=== PATIENT | male | born 1935 | race Caucasian/White ===

== ENCOUNTER → 2016-04-05 | Outpatient (CLI) | payer OTHER ==
[~2016-04-05] MED LIST: ASPI81TA28 PO; BND25X PO; CMD1 PO; FLUT0.15; FRRG PO; MULT-190 PO; MULT-506 PO; MXZC25 PO; NAPR1TAB9 PO; PRLSR20 PO; PSYL48.59 PO; SIMV40TA2 PO; TOBRSUS OPB; TYLUNK PO; ZNTT/150 PO
== END | disposition home or self-care (01) ==
LOC: C.PATHSPEC 17:37
PROVIDERS: ATTEND Urology
DX: R97.20 Elevated prostate specific antigen [PSA] (principal)

== ENCOUNTER → 2016-09-15 | Outpatient (CLI) | payer OTHER ==
[~2016-09-15] MED LIST changes: -ASPI81TA28 PO; -CMD1 PO; -FRRG PO; -MULT-506 PO; -TYLUNK PO
[2016-09-15 10:48] LABS: BASO % 0.6 %; BASO ABS # 0.03 K/uL (0-0.2); COMPLETE YES; EOS % 4.6 %; HEMATOCRIT 45.5 % (42-52); IG% 0.4 %; LYMPH % 23.5 %; LYMPH ABS # 1.13 K/uL (1.2-3.4); MEAN CELL VOLUME 90.5 fL (80-100); MEAN CORPUSCULAR HEMOGLOBIN 29.2 pg (25-34); MEAN CORPUSCULAR HGB CONC 32.3 g/dl (32-36); MEAN PLATELET VOLUME 9.7 fL (7.4-10.4); MONO % 11.4 %; NEUT % 59.5 %; PLATELET COUNT 217 K/uL (130-400); RED BLOOD COUNT 5.03 M/uL (4.7-6.1); WHITE BLOOD COUNT 4.81 K/uL (4.8-10.8)
[2016-09-15 11:13] LABS: ALT/SGPT 28 U/L (12-78); AST/SGOT 21 U/L (15-37); BLOOD UREA NITROGEN 17 mg/dl (7-18); BUN/CREATININE RATIO 15.8 (10-20); CARBON DIOXIDE 30 mmol/L (21-32); CHLORIDE 100 mmol/L (98-107); CHOLESTEROL 129 mg/dl (0-200); CHOLESTEROL/HDL RATIO 2.6; GLUCOSE 100 mg/dl (70-99); HDL CHOLESTEROL 49 mg/dl; LDL CHOLESTEROL CALCULATED 68 mg/dl; SODIUM 138 mmol/L (136-145); TRIGLYCERIDES 62 mg/dl (0-150); VERY LOW DENSITY LIPOPROT CALC 12 mg/dl
[2016-09-15 11:22] LABS: ALKALINE PHOSPHATASE 57 U/L (45-117)
== END | disposition home or self-care (01) ==
LOC: C.LABBC 07:07
PROVIDERS: ATTEND Internal Medicine
DX: M54.5 Low back pain (principal)

== ENCOUNTER → 2016-10-16 | Outpatient (CLI) | payer OTHER ==
[2016-10-16 11:47] LABS: BLOOD UREA NITROGEN 19 mg/dl (7-18)
== END | disposition home or self-care (01) ==
LOC: C.LABBC 07:20
PROVIDERS: ATTEND Urology
DX: C61 Malignant neoplasm of prostate (principal)

== ENCOUNTER → 2017-01-04 | Outpatient (CLI) | payer OTHER ==
[2017-01-04 11:17] LABS: BLOOD UREA NITROGEN 16 mg/dl (7-18); BUN/CREATININE RATIO 15.9 (10-20)
[2017-01-04 11:22] LABS: % FREE PSA 11.8 %; FREE PSA 0.77 ng/ml
== END | disposition home or self-care (01) ==
LOC: C.LABBC 07:28
PROVIDERS: ATTEND Urology
DX: C61 Malignant neoplasm of prostate (principal)

== ENCOUNTER → 2017-01-11 | Outpatient (CLI) | payer OTHER ==
[~2017-01-11] MED LIST changes: +GADAVIST IV PRN
--- NOTE | 2017-01-11 10:35 | DIAGNOSTIC IMAGING REPORT ---
PROSTATE MRI COMBO CLINICAL HISTORY: 81 years-old Male presenting with prostate carcinoma. PSA 7 ng/mL. TECHNIQUE: Multisequence, multiplanar MR imaging of the prostate was performed before and after the administration of intravenous contrast. Additional postprocessing was performed on a separate [employer] workstation by the radiologist for 3-D volumetric segmentation of the prostate and contouring of region(s) of interest (MATEO) for targeting. IV contrast: 6.5 cc intravenous Gadavist COMPARISON: None. FINDINGS: Prostate: The prostate measures 4.9 x 3.9 x 4.2 cm cm (DynaCAD prostate boundary segmentation volume 35 mL). Mild changes of benign prostatic hyperplasia. Precontrast T1 weighted imaging demonstrates no evidence of intrinsic T1 hyperintensity to suggest hemorrhage. Seminal vesicles normal. Suspicious lesion(s) described below: Lesion (DynaCAD MATEO) 1: Location: Left anterior transition zone at the mid gland. The lesion does not extend across the midline. Size: 13 mm (as measured on ADC for PZ lesion and T2WI for TZ lesion) T2W: 4. No evidence of extraprostatic extension. DWI: 4. Focal markedly hypointense on ADC and markedly hyperintense on high b-value DWI. DCE: Positive. Focal enhancement corresponding to a suspicious finding, earlier or contemporaneous with adjacent normal tissue. PI-RADS: 4. Clinically significant cancer is likely to be present. Bladder: Normal. Bowel: Visualized portion of the rectum normal. Peritoneum: No free fluid in the pelvis. Lymph nodes: No lymphadenopathy in the visualized portion of the pelvis. Vasculature: Iliac vessels patent. Osseous structures: Normal bone marrow signal intensity. IMPRESSION: 1. 13 mm lesion in the left anterior transition zone at the mid gland. PI-RADS 4. Clinically significant cancer is likely to be present. This lesion has been segmented for targeted biopsy. 2. Benign prostatic hyperplasia. Electronically signed by: Ramsey Bill M.D. 01/11/2017 10:34 AM Dictated Date/Time: 01/11/2017 10:28 AM
== END | disposition home or self-care (01) ==
LOC: C.MRIBC 07:47
PROVIDERS: ATTEND Urology
DX: C61 Malignant neoplasm of prostate (principal); N40.0 Benign prostatic hyperplasia without lower urinary tract symptoms

== ENCOUNTER → 2017-01-23 | Outpatient (CLI) | payer OTHER ==
[~2017-01-23] MED LIST changes: -GADAVIST IV PRN
--- NOTE | 2017-01-23 14:30 | DIAGNOSTIC IMAGING REPORT ---
BONE SCAN WHOLE BODY HISTORY: 81 years-old Male C61 Prostate [id number] metastatic survey in a patient with prostate cancer. History of right total hip arthroplasty. Patient complains of back pain. COMPARISON: Bone scan 06/13/2010, pelvis radiograph 02/17/2011, CT 03/16/2006. TECHNIQUE: Anterior and posterior whole body bone scan scintigraphic planar images were obtained utilizing 26.5 mCi technetium 99 MDP. Scan was obtained 3 hours post injection. FINDINGS: Unchanged hydronephrosis of the left kidney. Physiologic radiotracer uptake is seen about the right kidney and urinary bladder. Mildly increased tracer uptake about the appendicular skeletal system suggest degenerative changes, notably within the knees, shoulders and feet. Photopenic defect within the right femoral head, neck and proximal shaft correlates with right hip arthroplasty. Mildly increased radiotracer uptake surrounding arthroplasty is likely secondary to remodeling changes or loosening. There is moderately increased radiotracer uptake involving the lower lumbar spine at L4-L5. Additionally, there is moderate indeterminate radiotracer uptake of the midline anterior upper chest within the region of the sternum, seen best on the frontal views. Focal area of mildly increased radiotracer uptake is seen within the region of the posterior aspect left 11th rib. IMPRESSION: 1. Indeterminate focal area of moderately increased radiotracer uptake of the midline anterior upper chest within the region of the sternum. Correlate with CT of the chest. 2. Focal moderate radiotracer uptake within the region of the inferior endplate L4. This is suspicious for possible compression deformity rather than metastasis. Correlate with lumbar spine radiographs. 3. Mildly increased radiotracer uptake of the left 11th rib suggests age-indeterminate rib fracture. This could also be correlated with radiographs. 4. Mild tracer uptake about the right hip arthroplasty likely reflects physiologic remodeling changes or loosening. 5. Unchanged left hydronephrosis. The above report was generated using voice recognition software. It may contain grammatical, syntax or spelling errors. Electronically signed by: Pérez Garcia M.D. 01/23/2017 2:29 PM Dictated Date/Time: 01/23/2017 1:39 PM
== END | disposition home or self-care (01) ==
LOC: C.NUCL 09:32
PROVIDERS: ATTEND Urology
DX: C61 Malignant neoplasm of prostate (principal)

== ENCOUNTER → 2017-04-04 | Outpatient (CLI) | payer OTHER ==
[~2017-04-04] MED LIST changes: +RANI150T85 PO; -ZNTT/150 PO
== END | disposition home or self-care (01) ==
LOC: C.PATHSPEC 18:10
PROVIDERS: ATTEND Urology
DX: C61 Malignant neoplasm of prostate (principal)

== ENCOUNTER → 2017-04-30 | Outpatient (CLI) | payer OTHER ==
[~2017-04-30] MED LIST changes: -RANI150T85 PO; +ZNTT/150 PO
--- NOTE | 2017-04-30 12:27 | DIAGNOSTIC IMAGING REPORT ---
CHEST 2 VIEWS ROUTINE CLINICAL HISTORY: 81 years-old Male presenting with COUGH. TECHNIQUE: PA and lateral views of the chest were obtained. COMPARISON: 02/07/2011. FINDINGS: Atherosclerosis of the aortic arch. Cardiac silhouette normal in size. Calcified granuloma noted at the left apex. Lungs and pleural spaces otherwise clear. Degenerative changes of the thoracic spine. Upper abdomen normal. IMPRESSION: 1. No acute cardiopulmonary disease. Electronically signed by: Jesus Johnson M.D. 04/30/2017 12:26 PM Dictated Date/Time: 04/30/2017 12:25 PM
== END | disposition home or self-care (01) ==
LOC: C.RADBC 12:08
PROVIDERS: ATTEND Physician Assistant Medical
DX: R05 Cough (principal)

== ENCOUNTER → 2017-05-01 | Outpatient (CLI) | payer OTHER ==
--- NOTE | 2017-05-01 16:46 | DIAGNOSTIC IMAGING REPORT ---
(CHEST) THORAX WITHOUT CLINICAL HISTORY: R94.8 Abnormal radionuclide bone scan PROSTATE CARCINOMA COMPARISON STUDY: Whole-body bone scan dated 01/23/2017, chest x-ray dated 04/30/2017 CT DOSE: 316.35 mGy.cm TECHNIQUE: CT of the thorax was performed from the thoracic inlet to the lung bases. Images are reviewed in the axial, sagittal, and coronal planes. IV contrast was not administered for this examination. A dose lowering technique was utilized adhering to the principles of ALARA. FINDINGS: Thyroid: Is a 23 mm left lobe thyroid nodule. Thoracic aorta: There is mild ectasia of the ascending thoracic aorta which measures 38 mm in diameter. Heart: There are mild coronary artery calcifications present. Lungs and pleural spaces: No pleural effusions are visualized. There is no focal pulmonary consolidation. There are bilateral pleural plaques, several which are calcified. This suggests a prior occupational exposure history. There are no suspicious pulmonary masses. There is a calcified left upper lobe granuloma. Mediastinum: There is no mediastinal lymphadenopathy. Karine: There is no evidence of pathologic hilar adenopathy given the limitations of a noncontrast study Axilla: There is no evidence of pathologic axillary lymphadenopathy Upper abdomen: There is a hiatal hernia. There are multiple large left renal cysts measuring up to 9.4 cm in diameter Skeletal structures: No lytic or blastic lesions are visualized. No sternal or manubrial lesions are evident. The upper thoracic activity described on the prior bone scan will nonspecific but potentially relates to prominent anterior vertebral body osteophytes IMPRESSION: 1. 23 mm left lobe thyroid nodule 2. Small calcified pleural plaques 3. No suspicious pulmonary masses 4. No evidence of pathologic adenopathy 5. No lytic or blastic skeletal lesions are visualized Electronically signed by: Ramsey Bill M.D. 05/01/2017 4:45 PM Dictated Date/Time: 05/01/2017 4:37 PM
== END | disposition home or self-care (01) ==
LOC: C.CTS 16:25
PROVIDERS: ATTEND Internal Medicine
DX: E04.1 Nontoxic single thyroid nodule (principal); R94.8 Abnormal results of function studies of other organs and systems

== ENCOUNTER → 2017-05-07 | Outpatient (CLI) | payer OTHER ==
--- NOTE | 2017-05-07 12:27 | DIAGNOSTIC IMAGING REPORT ---
ULTRASOUND OF THE THYROID GLAND CLINICAL HISTORY: Thyroid nodule. COMPARISON STUDY: Chest CT dated 05/01/2017. TECHNIQUE: Real-time, grayscale, and color flow sonography of the thyroid gland is performed utilizing a high-frequency linear transducer. Images are reviewed in the transverse and longitudinal planes. FINDINGS: Right lobe: The right lobe of the thyroid gland is normal in size and homogeneous in echotexture, measuring 5.1 x 1.9 x 1.8 cm. Left lobe: The left lobe of the thyroid gland is normal in size and homogeneous in echotexture, measuring 4.9 x 1.5 x 1.3 cm. Isthmus: The thyroid isthmus is normal in appearance and measures 0.1 cm in AP diameter. IMPRESSION: 1. The thyroid gland is normal in size and homogeneous in echotexture. 2. No thyroid nodule is identified. 3. The thyroid nodule questioned by CT on 05/01/2017 likely corresponded to focal dilatation of the adjacent internal jugular vein. This is of doubtful significance. Electronically signed by: Frantz Portillo M.D. 05/07/2017 12:26 PM Dictated Date/Time: 05/07/2017 12:25 PM
== END | disposition home or self-care (01) ==
LOC: C.ULTR 11:46
PROVIDERS: ATTEND Internal Medicine
DX: E04.1 Nontoxic single thyroid nodule (principal)

== ENCOUNTER → 2017-05-10 | Outpatient (CLI) | payer OTHER ==
[~2017-05-10] MED LIST changes: +RANI150T85 PO; -ZNTT/150 PO
[2017-05-10 09:42] VITALS: BP 162/85; PULSE 70; TEMP 36.9; O2SAT 98
--- NOTE | 2017-05-10 11:02 | Radiation Oncology Follow-Up ---
Radiation Oncology Follow-Up Date of Visit May 10, 2017. Reason For Visit 1 year follow-up has undergone active surveillance and rebiopsy Radiation Completion Date not applicable Diagnosis (1) Prostate cancer Status: Acute Onset Date: 04/05/2016 Stage: ll Permanent Comment: Rising PSA, pretreatment PSA 6.03 Status post ultrasound guided biopsies 04/05/2016 Ricky grade 3+3 Prostate volume 36.5 Prostate density 0.165 Active surveillance, last PSA 01/04/2017 at 6.550 Status post ultrasound-guided biopsies 04/04/2017 Ricky 3+3 and 3+4 Last Edited By: Lucinda Olivares on May 10, 2017 10:50 History of Present Illness Mr. Caldera is without a family history of prostate cancer. He has been followed with prostate-specific antigens. These remained under 07/03/2013. In August 2014 the prostate-specific antigen was 4.76. This was repeated on in September 2014 and was 4.3. In January 2015 prostate-specific antigen was 4.7. August 2015 prostate-specific antigen was 5.85 and on 02/04/2016 the prostate-specific antigen was 6.03. The patient's digital exam is remained unremarkable. His free prostate-specific antigen was 14.6%. Because of the change in prostate- specific antigen Dr. Bledsoe discussed the option of ultrasound-guided biopsies with the patient. He ultimately did agree and the biopsy was scheduled and performed on 04/05/2016. A total of 14 samples were taken. This included two biopsies each from the left and right base, left and right mid gland, left and right apex and one biopsy from the left and right anterior gland. The biopsies from the left base , left mid gland, right mid gland, left apex and right apex were all benign. 2 of 2 biopsies from the right base were positive for adenocarcinoma Ricky grade 3+3 involving less than 10% of the aggregate core length. No perineural or lymphovascular invasion was identified. One of 2 biopsy from the left apex was positive for prostatic adenocarcinoma Ricky grade 3+3 involving 50% of the core length with no perineural or lymphovascular invasion identified. One biopsy from the left anterior gland was positive for prostatic adenocarcinoma Ricky grade 3+3 involving 60% of the core length with no perineural or lymphovascular invasion identified. Case: 17-once 17-S. Therefore total of 4 out of 14 biopsies were positive all Wichita grade 3+3. 2 biopsies from the left gland in 2 biopsies from the right gland were positive. The patient met with Dr. Bledsoe to discuss treatment options. He arranged for us to see the patient in referral to also discuss treatment options. Interim History Patient had been seen on 04/27/2016. Options of treatment were reviewed. His decision was to be treated with active surveillance. He has been followed very closely by Dr. Bledsoe. He has had recheck PSAs. On 10/16/2016 the PSA was 7.030. Recheck PSA 01/04/2017 was 6.550. Recheck biopsy was recommended and carried out on 04/04/2017. Prior to the biopsy he had an MRI in order to have guidance to targeted lesions. MRI on 01/11/2017 showed 13 mm lesion in the left anterior transitional zone at the mid gland. The biopsies were performed and a total of 17 biopsies were taken. 6 of the biopsies were positive. At the right base one of 2 biopsies were positive with a Ricky 3+3 perineural invasion was negative. 12.5% of the core was involved. Biopsy at the right mid was positive with a 3+3. This was one core. 5% of the core was involved. There was perineural invasion present. A biopsy at the left apex showed 3+4. Perineural invasion was not seen. 15% of the core was a Ricky 4. The total amount of core was 50%. A biopsy at the left anterior showed a 3+3. 60% of the core was involved. Perineural invasion was not seen. The targeted lesion was biopsied and found to have a [place]ichita 3+3 in 2 of 3 cores. The percentage of the cores involved was 50% and 55%. Calculation was performed on the PSAs and there was a doubling time of 5.5 years. Allergies Coded Allergies: No Known Allergies (Verified , 06/16/09) Home Medications Scheduled Diphenhydramine Hcl (Benadryl *), 50 MG PO HS PRN Fluticasone Propionate (Nasal) (Flonase Allergy Relief), 2 SPRAYS NA DAILY Ocuvite Preservision (Ocuvite Preservision), 1 TAB PO DAILY Omeprazole (Prilosec), 20 MG PO QAM Psyllium (Metamucil), 1 TSP PO DAILY Ranitidine (Zantac), 150 MG PO HS Simvastatin (Zocor), 40 MG PO QPM Tobramycin/Dexamethasone 0.3% Oph (Tobradex 0.3% Oph), 1 DROP OPB DAILY Triamterene/Hctz (Triamterene/Hctz 37.5-25MG Tab), 1 TAB PO DAILY Scheduled PRN Naproxen (Aleve), 220 MG PO DAILY PRN for Pain Review of Systems Gastrointestinal: Symptoms: WNL Oral: Symptoms: No Problems Respiratory: Symptoms: Moist Cough Respiratory Comments: getting over a flu Sputum Character: clear, thick Urinary: Comments: occasionally hard to start Skin: Symptoms: No Problems Physical Exam Vital Signs Date Time Temp Pulse Resp B/P (MAP) Pulse Ox O2 Delivery O2 Flow Rate FiO2 05/10/17 09:42 36.9 70 18 162/85 98 Fatigue: None General Appearance: no apparent distress Eyes: normal inspection, EOMI ENT: normal ENT inspection, hearing grossly normal Respiratory/Chest: lungs clear, no respiratory distress, no accessory muscle use Cardiovascular: regular rate, rhythm, no gallop, no murmur Abdomen: non tender, soft, no organomegaly Extremities: no pedal edema Neurologic/Psychiatric: no motor/sensory deficits, alert, normal mood/affect Pain Management Patient Reports Pain: No Pain Location: None Patient Preferred Pain Scale: 0 - 10 Initial Pain Intensity: 0.0 Pain Management Plan He denies pain therefore requires no pain management. Laboratory Laboratory Results: were reviewed, and pertinent findings noted in HPI Laboratory Comments: Reviewed in the interim history. Pathology Pathology Results: were reviewed, and pertinent findings noted below Pathology Comments [facility] SURGICAL PATHOLOGY REPORT Name HILARIO CALDERA Case: SURGICAL PATHOLOGY REPORT Page [address] [address] Jesus Valentin M.D. camera repairman PATHOLOGY REPORT SURGICAL PATHOLOGY REPORT Page 1 of 1 Name HILARIO CALDERA Age/Sex 81/M Location: [facility]# [id number] : 1935 /Bed Physician: Abdiel Bledsoe MD, Urology Case: -S Received 04/04/17 Specimen Date 04/04/17 CLINICAL HISTORY R97.20 GROSS DESCRIPTION A. LEFT BASE X2 The specimen is received in a container labeled as left base with patient name Hilario Caldera. The specimen consists of two cylindrical fragments of pink soft tissue, each measuring 2 cm in length and averaging 0.1 cm in diameter. The specimen is entirely submitted in a single cassette as A for levels. B. RIGHT BASE X2 The specimen is received in a container labeled as right base with patient name Hilario Caldera. The specimen consists of three cylindrical fragments of pink soft tissue which range from 0.2 to 1.6 cm in length and average 0.1 cm in diameter. The specimen is entirely submitted in a single cassette as B for levels. C. LEFT MID X2 The specimen is received in a container labeled as left mid with patient name Hilario Caldera. The specimen consists of five cylindrical fragments of pink soft tissue which range from 0.2 to 1.5 cm in length and average 0.1 cm in diameter. The specimen is entirely submitted in a single cassette as C for levels. D. RIGHT MID X2 The specimen is received in a container labeled as right mid with patient name Hilario Caldera. The specimen consists of two cylindrical fragments of pink soft tissue which measure 1.5 and 1.7 cm in length and average 0.1 cm in diameter. The specimen is entirely submitted in a single cassette as D for levels. E. LEFT APEX X2 The specimen is received in a container labeled as left apex with patient name Hilario Caldera. The specimen consists of three cylindrical fragments of pink soft tissue which range from 0.2 to 1.8 cm in length and average 0.1 cm in diameter. The specimen is entirely submitted in a single cassette as E for levels. F. RIGHT APEX X2 The specimen is received in a container labeled as right apex with patient name Hilario Caldera. The specimen consists of three cylindrical fragments of pink soft tissue which range from 0.3 to 2 cm in length and average 0.1 cm in diameter. The specimen is entirely submitted in a single cassette as F for levels. G. LEFT ANTERIOR X1 The specimen is received in a container labeled as left anterior with patient name Hilarioliane Caldera. The specimen consists of a single cylindrical fragment of pink soft tissue which measures 1.8 cm in length and averages 0.1 cm in diameter. The specimen is entirely submitted in a single cassette as G for levels. H. RIGHT ANTERIOR X1 The specimen is received in a container labeled as right anterior with patient name Hilario Caldera. The specimen consists of a single cylindrical fragment of pink soft tissue which measures 1.7 cm in length and averages 0.1 cm in diameter. The specimen is entirely submitted in a single cassette as H for levels. I. LESION 1 X3 The specimen is received in a container labeled as lesion #1 with patient name Hilario Caldera. The specimen consists of three cylindrical fragments of pink soft tissue, each measuring 1.3 cm left and averaging 0.1 cm in diameter. The specimen is entirely submitted in a single cassette as I for levels. SH/mas FINAL DIAGNOSIS A. PROSTATE, LEFT BASE, BIOPSIES: BENIGN PROSTATIC TISSUE WITH MILD CHRONIC INFLAMMATION. NO NEOPLASM SEEN. B. PROSTATE, RIGHT BASE, BIOPSIES: 1. ADENOCARCINOMA, RICKY SCORE 3+3=6 (PROGNOSTIC GROUP 1) INVOLVING ONE OF TWO CORES. 2. TUMOR INVOLVES 0.15 CM/12.5% OF A 1.2 CM CORE. 3. PERINEURAL INVASION NOT SEEN. C. PROSTATE, LEFT MID, BIOPSIES: BENIGN PROSTATIC TISSUE. NO NEOPLASM SEEN. D. PROSTATE, RIGHT MID, BIOPSIES: 1. ADENOCARCINOMA, RICKY SCORE 3+3=6 (PROGNOSTIC GROUP 1) INVOLVING ONE OF TWO CORES. 2. TUMOR INVOLVES 0.1 CM/5% OF A 1.7 CM CORE. 3. PERINEURAL INVASION PRESENT. E. PROSTATE, LEFT APEX, BIOPSIES: 1. ADENOCARCINOMA, RICKY SCORE 3+4=7 (PROGNOSTIC GROUP 2) INVOLVING ONE OF TWO CORES. 2. TUMOR INVOLVES 0.6 CM/50% OF A 1.2 CM CORE. 3. I WOULD ESTIMATE THAT 15% OF THE TUMOR IS RICKY PATTERN 4. 4. PERINEURAL INVASION NOT SEEN. F. PROSTATE, RIGHT APEX, BIOPSIES: BENIGN PROSTATIC TISSUE. NO NEOPLASM SEEN. G. PROSTATE, LEFT ANTERIOR, BIOPSY: 1. ADENOCARCINOMA, RICKY SCORE 3+3=6 (PROGNOSTIC GROUP 1) INVOLVING ONE OF ONE CORES. 2. TUMOR INVOLVES 0.9 CM/60% OF A 1.5 CM CORE. 3. PERINEURAL INVASION NOT SEEN. H. PROSTATE, RIGHT ANTERIOR, BIOPSY: BENIGN PROSTATIC TISSUE. NO NEOPLASM SEEN. I. PROSTATE, LESION #1, BIOPSIES: 1. ADENOCARCINOMA, RICKY SCORE 3+3=6 (PROGNOSTIC GROUP 1) INVOLVING TWO OF THREE CORES. 2. TUMOR INVOLVES 0.6 CM/50% OF A 1.2 CM CORE AND 0.5 CM/55% OF A 0.9 CM CORE. 3. PERINEURAL INVASION NOT SEEN. /[facility] COPIES TO Abdiel Bledsoe MD, Urology [address] [place] [address] No Doctor, Assigned [address] [place] [address] Signed: <signature on file> 04/05/17 Jose Tiwari MD Imaging Imaging Studies: were reviewed, and pertinent findings noted below Imaging Comments Patient: HILARIO CALDERA Address1: [address] Rec: [id number] Address2: [address] Acct ID: [id number] [facility] Zip: [place] [address] Date: 1935 Sex: M Room/Bed: Ref Phy: Jesus Platt M.D. SC: ANGELBC Att Phy: Abdiel Bledsoe MD, Urology Report #: [id number] Alysa Phy: Jesus Platt M.D. Test: PROSTATE Admit Phy: Social Science Teacher: TAMMY Interpreting Phy: Ramsey Bill M.D. Diagnosis: PROSTATE CA, PSA LEVEL 7.03 Ordering Phy: Abdiel Bledsoe MD Service Date: 01/11/17 Admit Date: 01/11/17 MNE: PWRSCRIBE CONF: DICTATED BY: Ramsey Bill M.D.]] CC: Jesus Platt M.D. Miller, Howard I., MD, Urology Endcc: [~ rep ct add3]] PROSTATE MRI COMBO CLINICAL HISTORY: 81 years-old Male presenting with prostate carcinoma. PSA 7 ng/mL. TECHNIQUE: Multisequence, multiplanar MR imaging of the prostate was performed before and after the administration of intravenous contrast. Additional postprocessing was performed on a separate [employer] workstation by the radiologist for 3-D volumetric segmentation of the prostate and contouring of region(s) of interest (MATEO) for targeting. IV contrast: 6.5 cc intravenous Gadavist COMPARISON: None. FINDINGS: Prostate: The prostate measures 4.9 x 3.9 x 4.2 cm cm (DynaCAD prostate boundary segmentation volume 35 mL). Mild changes of benign prostatic hyperplasia. Precontrast T1 weighted imaging demonstrates no evidence of intrinsic T1 hyperintensity to suggest hemorrhage. Seminal vesicles normal. Suspicious lesion(s) described below: Lesion (DynaCAD MATEO) 1: Location: Left anterior transition zone at the mid gland. The lesion does not extend across the midline. Size: 13 mm (as measured on ADC for PZ lesion and T2WI for TZ lesion) T2W: 4. No evidence of extraprostatic extension. DWI: 4. Focal markedly hypointense on ADC and markedly hyperintense on high b-value DWI. DCE: Positive. Focal enhancement corresponding to a suspicious finding, earlier or contemporaneous with adjacent normal tissue. PI-RADS: 4. Clinically significant cancer is likely to be present. Bladder: Normal. Bowel: Visualized portion of the rectum normal. Peritoneum: No free fluid in the pelvis. Lymph nodes: No lymphadenopathy in the visualized portion of the pelvis. Vasculature: Iliac vessels patent. Osseous structures: Normal bone marrow signal intensity. IMPRESSION: 1. 13 mm lesion in the left anterior transition zone at the mid gland. PI-RADS 4. Clinically significant cancer is likely to be present. This lesion has been segmented for targeted biopsy. 2. Benign prostatic hyperplasia. Electronically signed by: Ramsey Bill M.D. 01/11/2017 10:34 AM Dictated Date/Time: 01/11/2017 10:28 AM Patient: HILARIO CALDERA Address1: [address] [place] [facility] Rec: [id number] Address2: Acct ID: [id number] [facility] Zip: [place] [address] Date: 1935 Sex: M Room/Bed: Ref Phy: Jesus Platt M.D. SC: LGL Att Phy: Abdiel Bledsoe MD, Urology Report #: [id number] Alysa Phy: Jesus Platt M.D. Test: HOSPITALITY AMBASSADOR Admit Phy: Social Science Teacher: SOPHIA Interpreting Phy: Pedrito Garcia D.O. Diagnosis: PROSTATE CA Ordering Phy: Abdiel Bledsoe MD Service Date: 01/23/17 Admit Date: 01/23/17 MNE: PWRSCRIBE CONF: DICTATED BY: Pedrito Garcia D.O.]] CC: Jesus Platt M.D. Miller, Howard I., MD, Urology Endcc: [~ rep ct add3]] BONE SCAN WHOLE BODY HISTORY: 81 years-old Male C61 Prostate [id number] metastatic survey in a patient with prostate cancer. History of right total hip arthroplasty. Patient complains of back pain. COMPARISON: Bone scan 06/13/2010, pelvis radiograph 02/17/2011, CT 03/16/2006. TECHNIQUE: Anterior and posterior whole body bone scan scintigraphic planar images were obtained utilizing 26.5 mCi technetium 99 MDP. Scan was obtained 3 hours post injection. FINDINGS: Unchanged hydronephrosis of the left kidney. Physiologic radiotracer uptake is seen about the right kidney and urinary bladder. Mildly increased tracer uptake about the appendicular skeletal system suggest degenerative changes, notably within the knees, shoulders and feet. Photopenic defect within the right femoral head, neck and proximal shaft correlates with right hip arthroplasty. Mildly increased radiotracer uptake surrounding arthroplasty is likely secondary to remodeling changes or loosening. There is moderately increased radiotracer uptake involving the lower lumbar spine at L4-L5. Additionally, there is moderate indeterminate radiotracer uptake of the midline anterior upper chest within the region of the sternum, seen best on the frontal views. Focal area of mildly increased radiotracer uptake is seen within the region of the posterior aspect left 11th rib. IMPRESSION: 1. Indeterminate focal area of moderately increased radiotracer uptake of the midline anterior upper chest within the region of the sternum. Correlate with CT of the chest. 2. Focal moderate radiotracer uptake within the region of the inferior endplate L4. This is suspicious for possible compression deformity rather than metastasis. Correlate with lumbar spine radiographs. 3. Mildly increased radiotracer uptake of the left 11th rib suggests age-indeterminate rib fracture. This could also be correlated with radiographs. 4. Mild tracer uptake about the right hip arthroplasty likely reflects physiologic remodeling changes or loosening. 5. Unchanged left hydronephrosis. The above report was generated using voice recognition software. It may contain grammatical, syntax or spelling errors. Electronically signed by: Pérez Garcia M.D. 01/23/2017 2:29 PM Dictated Date/Time: 01/23/2017 1:39 PM Assessment & Plan (Attending) Mr. Caldera is an 81-year-old gentleman who was originally seen in referral by me on 04/27/2016. At that time he had a history of slowly rising prostate- specific antigen reaching 6.03 on 02/04/2016. Patient underwent ultrasound- guided biopsies. Of the 14 biopsies taken for positive all Ricky grade 3+3. In discussion with the patient given his age and low risk disease we discussed treatment options with primary recommendation to strongly consider active surveillance. We also discussed the possibility of genetic testing which the patient decided against at that time. The patient continued to be followed by Dr. Bledsoe and on 10/16/2016 had a repeat prostate-specific antigen that jumped to 7.03. This was ultimately repeated on 01/04/2017 with the prostate-specific antigen returning to 6.55. The patient underwent a prostate MRI, on 01/11/2017 the prostate measured 4.9 x 3.9 x 4.2 cm with an estimated volume 35 mL. The seminal vesicles were normal. In the left anterior transition zone at the mid gland a 13 mm lesion was noted but did not extend across the midline. There was no evidence of extraprostatic extension. This was given a PI-RADS for consistent with a clinically significant cancer. A bone scan was also performed on 01/23/2017 which showed no definite evidence of metastatic disease. There was uptake consistent with arthritic changes and a age indeterminate left 11th rib fracture. On 04/04/2017 patient underwent a repeat ultrasound-guided biopsy utilizing the information from the MRI. 2 biopsies from the left and right base , left and right., Left and right apex and one biopsy from the left and right anterior gland were taken along with 3 biopsies from the abnormal lesion as noted by MRI. Biopsy from the left base revealed benign prostatic tissues with mild chronic inflammation but no neoplasm seen. Biopsy from the right base, left mid, right apex and right anterior were benign with no neoplasm seen. One of 2 biopsies from the right base was positive for adenocarcinoma Wichita grade involving 12.5% of the core tissue sample with no perineural invasion seen. One of 2 biopsies in the right mid gland were positive for adenocarcinoma Ricky grade 3+3 involving 5% of the core tissue sample with perineural invasion seen. One of 2 biopsies in the left apex were positive for adenocarcinoma Ricky grade 3+4 involving 50% of the core tissue sample. The Wichita pattern 4 represented 15% of the total tumor volume with no perineural invasion seen. One of one biopsies in the left anterior were positive for adenocarcinoma Ricky grade 3+3 involving 60% of the core tissue sample with no perineural invasion seen. 2 of 3 biopsies taken from the MRI PI-RADS target were positive for adenocarcinoma Wichita grade 3+3 involving 50% 55% of the core tissue sample with no perineural invasion seen. Case: [id number]. Comparing the most recent biopsy to the prior biopsy the number of positive biopsies increased from 4-6. The initial biopsies were positive on the left and the most recent biopsies are positive in both right and left gland. The original biopsies were all Ricky grade 3+3. One out of 6 biopsies in the most recent sampling was a Ricky grade 3+4 with the Wichita pattern 4 represented 15% of the core tissue sample. It was 1 mention of perineural invasion in the right mid gland. I compared and contrasted these findings with the patient and his sister. I also reviewed his change in prostate-specific antigen over time. I entered the prostate-specific antigen values into the [facility] nomogram which gave a doubling time of 5-1/2 years. Estimated doubling time of Wichita grade 3+3 is 4-5 years. This would be more consistent with the vast majority of his cancer being 3+3 is what the biopsies show. The small component of Ricky 4 however does take the patient from a low risk category 2 a favorable intermediate risk. I once again reviewed anticipated survival following NCCN Guidelines. At age 81 average survival was 7-1/2 years. Given his otherwise good health his survival estimates good range from 7-11 years. I told the patient that it was highly likely that the Wichita pattern 4 was present at the time of the previous biopsy 1 year ago but was simply not identified due to the tenderness of the initial biopsies. I think it is important that the high risk area as identified by the MRI showed no evidence of high-grade prostate cancer. Based on this information I told the patient that he could if he desired continue with active surveillance or we could potentially discuss definitive treatment options. However I told him that my recommendation at this time would be to strongly consider continued active surveillance. This is based on the recent biopsies and change in prostate-specific antigen that is consistent with a majority low-grade prostate cancer. We again discussed the possibility of genetic testing. I again discussed this option with him reminding him that this testing would show was that his cancer would act as anticipated, less aggressively than anticipated were more aggressively as anticipated. He felt this information would be extremely helpful for him. He would like to continue with active surveillance and avoid treatment if at all possible. He feels that the additional data from the genomic testing will be valuable for him to make final decision about treatment options. Therefore at his request we will order an Oncotype DX testing on the most recent biopsies. The patient is also scheduled for a second opinion with Dr. Ana Flower, [facility]ist [facility] for 06/13/2017 at 10 AM. He has all the information available to share with her however it is unlikely that the Oncotype DX test information will be available at that time. I indicated that I would contact him with results of this test done either review them with him in person or on the phone at his preference. Thank you for allowing us to participate in the care of this patient. This chart was completed in part utilizing [employer] Voice Recognition software. Attempts were made to minimize the grammatical errors, random word insertions, pronoun errors and incomplete sentences. Any formal questions or concerns about the content, text or information contained within the body of this dictation should be directly addressed to the provider for clarification. Jesús Desouza MD Department of Radiation Oncology [facility] and Angela Pierson [facility] I spent 30 minutes in discussion of the significance of the new biopsy data and prostate-specific antigen information and 10 minutes reviewing his chart and in preparation of this document. ESSIE Total Time In Follow-Up I spent 20 minutes speaking to the patient performing examination. I spent 15 minutes reviewing information completing this note. AK Total Time (Attending) In Follow-Up I spent 30 minutes in discussion of the significance of the new biopsy data and prostate-specific antigen information and 10 minutes reviewing his chart and in preparation of this document. ESSIE Copy To Jesus Platt M.D.; Abdiel Bledsoe MD, Urology
== END | disposition home or self-care (01) ==
LOC: C.ONC 09:17
PROVIDERS: ATTEND Physician Assistant Medical
DX: Z08 Encounter for follow-up examination after completed treatment for malignant neoplasm (principal); Z85.46 Personal history of malignant neoplasm of prostate

== ENCOUNTER → 2017-10-26 | Outpatient (CLI) | payer OTHER ==
[2017-10-26 11:28] LABS: BASO % 1.1 %; BASO ABS # 0.05 K/uL (0-0.2); EOS % 5.2 %; EOS ABS # 0.24 K/uL (0-0.5); HEMATOCRIT 45.4 % (42-52); HEMOGLOBIN 15.9 g/dL (14.0-18.0); IG# 0.02 K/uL (0.00-0.02); LYMPH % 27.8 %; LYMPH ABS # 1.29 K/uL (1.2-3.4); MEAN CELL VOLUME 92.5 fL (80-100); MEAN CORPUSCULAR HEMOGLOBIN 32.4 pg (25-34); MEAN PLATELET VOLUME 10.5 fL (7.4-10.4); MONO % 11.9 %; MONO ABS # 0.55 K/uL (0.11-0.59); NEUT % 53.6 %; NEUT ABS # 2.49 K/uL (1.4-6.5); PLATELET COUNT 204 K/uL (130-400); RED CELL DISTRIBUTION WIDTH CV 12.3 % (11.5-14.5); RED CELL DISTRIBUTION WIDTH SD 41.3 fL (36.4-46.3); WHITE BLOOD COUNT 4.64 K/uL (4.8-10.8)
[2017-10-26 11:50] LABS: ALBUMIN 3.8 gm/dl (3.4-5.0); ALKALINE PHOSPHATASE 56 U/L (45-117); ALT/SGPT 29 U/L (12-78); AST/SGOT 21 U/L (15-37); BLOOD UREA NITROGEN 20 mg/dl (7-18); CALCIUM 8.8 mg/dl (8.5-10.1); CARBON DIOXIDE 31 mmol/L (21-32); CHOLESTEROL 134 mg/dl (0-200); CREATININE 1.15 mg/dl (0.60-1.40); GLUCOSE 97 mg/dl (70-99); LDL CHOLESTEROL CALCULATED 70 mg/dl; POTASSIUM 4.1 mmol/L (3.5-5.1); SODIUM 135 mmol/L (136-145); TOTAL PROTEIN 7.1 gm/dl (6.4-8.2)
[2017-10-26 11:54] LABS: HEMOGLOBIN A1C 5.7 % (4.5-5.6)
== END | disposition home or self-care (01) ==
LOC: C.LABBC 07:23
PROVIDERS: ATTEND Internal Medicine
DX: I10 Essential (primary) hypertension (principal); R73.01 Impaired fasting glucose; M54.5 Low back pain; R53.83 Other fatigue; E78.5 Hyperlipidemia, unspecified; C61 Malignant neoplasm of prostate